=== PATIENT | male | born 1940 | race Caucasian/White ===

== ENCOUNTER 2019-02-22 23:55 | Emergency (ER) | payer MEDICARE, BC ==
--- NOTE | 2019-02-23 00:25 | EDM.PDOC ---
ED HPI GENERAL MEDICAL PROBLEM - General Chief Complaint: Trauma Stated Complaint: fall Time Seen by Provider: 02/23/19 00:15 Source of Information: Reports: Patient, Family History Limitations: Reports: No Limitations - History of Present Illness INITIAL COMMENTS - FREE TEXT/NARRATIVE: 78 YO WM presents to ER complaining of generalized weakness and fall tonight. Pt states he and his son were out drinking tonight and when he got home and got out of the car he fell to the ground. Pt states he feels fine now but states he doesn't know what happened. Pt denies any loss of consciousness. Fall was witnessed by son who confirms no loss of consciousness. Pt denies chest pain, no shortness of breath, no headache, no nausea/vomiting. Pt denies any recent illnesses. No cough or congestion, no fever/chills. Pt alert and oriented with GCS-15. Pt with mild slurred speech but no focal neuro deficits or weakness. Son is asking dad if he wants to go home without further evaluation. Onset: Today Location: Reports: Generalized Severity: Mild Improves with: Reports: None Worsens with: Reports: None Associated Symptoms: Reports: Weakness. Denies: Confusion, Chest Pain, Cough, cough w sputum, Diaphoresis, Fever/Chills, Headaches, Loss of Appetite, Malaise , Rash, Seizure, Shortness of Breath, Syncope - Related Data Allergies Allergy/AdvReac Type Severity Reaction Status Date / Time No Known Allergies Allergy Verified 02/22/19 23:57 Past Medical History Oncologic (Cancer) History: Reports: Prostate Social & Family History - Tobacco Use Smoking Status *Q: Never Smoker - Alcohol Use Number of Drinks Per Day: 7 - Recreational Drug Use Recreational Drug Use: No Review of Systems - Review of Systems Review Of Systems: See Below Constitutional: Reports: No Symptoms Eyes: Reports: No Symptoms Ears: Reports: No Symptoms Nose: Reports: No Symptoms Mouth/Throat: Reports: No Symptoms Respiratory: Reports: No Symptoms Cardiovascular: Reports: No Symptoms GI/Abdominal: Reports: No Symptoms Genitourinary: Reports: No Symptoms Musculoskeletal: Reports: No Symptoms Skin: Reports: No Symptoms Neurological: Reports: No Symptoms Psychiatric: Reports: No Symptoms ED EXAM, GENERAL - Physical Exam Exam: See Below Exam Limited By: No Limitations General Appearance: Alert, WD/WN, No Apparent Distress Eye Exam: Bilateral Eye: EOMI, PERRL Head: Atraumatic, Normocephalic Neck: Normal Inspection, Supple, Non-Tender, Full Range of Motion Respiratory/Chest: No Respiratory Distress, Lungs Clear, Normal Breath Sounds, No Accessory Muscle Use, Chest Non-Tender Cardiovascular: Normal Peripheral Pulses, Regular Rate, Rhythm, No Edema, No Gallop, No JVD, No Murmur, No Rub GI/Abdominal: Normal Bowel Sounds, Soft, Non-Tender, No Organomegaly, No Distention, No Abnormal Bruit, No Mass Back Exam: Normal Inspection, Full Range of Motion, NT Extremities: Normal Inspection, Normal Range of Motion, Non-Tender, Normal Capillary Refill, No Pedal Edema Neurological: Alert, Oriented, CN II-XII Intact, Normal Cognition, Normal Gait, Normal Reflexes, No Motor/Sensory Deficits Psychiatric: Normal Affect, Normal Mood Skin Exam: Warm, Dry, Intact, Normal Color, No Rash Lymphatic: No Adenopathy EKG INTERPRETATION EKG Date: 02/23/19 Time: 00:26 Rhythm: NSR Rate (Beats/Min): 71 [place]: LAD-Left [place] Deviation P-Wave: Present QRS: Normal ST-T: Normal QT: Normal Comparison: NA - No Prior EKG Course - Vital Signs Last Recorded V/S: Last Vital Signs Temp 36.4 C 02/22/19 23:58 Pulse 76 02/22/19 23:58 Resp 16 02/22/19 23:58 BP 155/75 H 02/22/19 23:58 Pulse Ox 95 02/22/19 23:58 - Orders/Labs/Meds Orders: Active Orders 24 hr Category Date Time Status EKG Documentation Completion [RC] ASDIRECTED Care 02/23/19 00:10 Active Chest 1V Frontal [CR] Stat Exams 02/23/19 00:19 Ordered Head wo Cont [CT] Stat Exams 02/23/19 00:19 Ordered URINALYSIS W/MICROSCOPIC [UA W/MICROSCOPIC] [URIN] Stat Lab 02/23/19 00:25 Ordered EKG 12 Lead [EK] Routine Ther 02/23/19 00:10 Ordered Labs: Laboratory Tests 02/23/19 02/23/19 02/23/19 Range/Units 00:20 00:20 00:20 WBC 5.65 (5.00-10.00) 10^3/uL RBC 3.97 L (4.50-6.00) 10^6/uL Hgb 12.7 L (13.0-17.0) g/dL Hct 35.2 L (40.0-52.0) % MCV 88.7 (82.0-92.0) fL MCH 32.0 H (27.0-31.0) pg MCHC 36.1 H (32.0-36.0) g/dL RDW 12.6 (11.5-14.5) % Plt Count 222 (150-400) 10^3/uL MPV 8.7 (7.4-10.4) fL Immature Gran % (Auto) 0.2 (0.0-5.0) % Neut % (Auto) 62.2 (50.0-70.0) % Lymph % (Auto) 27.3 (20.0-40.0) % [place] % (Auto) 8.7 H (2.0-8.0) % Eos % (Auto) 1.2 (1.0-3.0) % Baso % (Auto) 0.4 (0.0-1.0) % Immature Gran # (Auto) 0.01 (0.00-0.50) 10^3/uL Neut # (Auto) 3.52 (2.50-7.00) 10^3/uL Lymph # (Auto) 1.54 (1.00-4.00) 10^3/uL [place] # (Auto) 0.49 (0.10-0.80) 10^3/uL Eos # (Auto) 0.07 L (0.10-0.30) 10^3/uL Baso # (Auto) 0.02 (0.00-0.10) 10^3/uL Sodium 132 L (136-145) mmol/L Potassium 3.4 (3.3-5.3) mmol/L Chloride 95 L (98-115) mmol/L Carbon Dioxide 21.3 (21.0-32.0) mmol/L Anion Gap 19.1 H (5-15) mmol/L BUN 20 (6-25) mg/dL Creatinine 1.02 (0.51-1.17) mg/dL Est Cr Clr Drug Dosing 52.12 mL/min Estimated GFR (MDRD) > 60 mL/min Glucose 123 H (75 - 99) mg/dL Calcium 8.2 L (8.7-10.3) mg/dL Total Bilirubin 0.4 (0.2-1.0) mg/dL AST 36 (15-37) U/L ALT 18 (12-78) U/L Alkaline Phosphatase 79 (46-116) IU/L Creatine Kinase 156 (26-276) U/L CK-MB (CK-2) 1.90 (0.00-4.30) ng/mL Troponin I 0.05 (0.00-0.070) ng/mL Total Protein 6.9 (6.4-8.2) g/dL Albumin 3.56 (3.00-4.80) g/dL Urine Color (YELLOW) Urine Appearance (CLEAR) Urine pH (5.0-9.0) Ur Specific [place] (1.005-1.030) Urine Protein (NEGATIVE) mg/dL Urine Glucose (UA) (NEGATIVE) mg/dL Urine Ketones (NEGATIVE) mg/dL Urine Occult Blood (NEGATIVE) Urine Nitrite (NEGATIVE) Urine Bilirubin (NEGATIVE) Urine Urobilinogen (0.2-1.0) E.U./dL Ur Leukocyte Esterase (NEGATIVE) Ethyl Alcohol 262 H* (NONE DETECTED) mg/dL 02/23/19 Range/Units 00:25 WBC (5.00-10.00) 10^3/uL RBC (4.50-6.00) 10^6/uL Hgb (13.0-17.0) g/dL Hct (40.0-52.0) % MCV (82.0-92.0) fL MCH (27.0-31.0) pg MCHC (32.0-36.0) g/dL RDW (11.5-14.5) % Plt Count (150-400) 10^3/uL MPV (7.4-10.4) fL Immature Gran % (Auto) (0.0-5.0) % Neut % (Auto) (50.0-70.0) % Lymph % (Auto) (20.0-40.0) % [place] % (Auto) (2.0-8.0) % Eos % (Auto) (1.0-3.0) % Baso % (Auto) (0.0-1.0) % Immature Gran # (Auto) (0.00-0.50) 10^3/uL Neut # (Auto) (2.50-7.00) 10^3/uL Lymph # (Auto) (1.00-4.00) 10^3/uL [place] # (Auto) (0.10-0.80) 10^3/uL Eos # (Auto) (0.10-0.30) 10^3/uL Baso # (Auto) (0.00-0.10) 10^3/uL Sodium (136-145) mmol/L Potassium (3.3-5.3) mmol/L Chloride (98-115) mmol/L Carbon Dioxide (21.0-32.0) mmol/L Anion Gap (5-15) mmol/L BUN (6-25) mg/dL Creatinine (0.51-1.17) mg/dL Est Cr Clr Drug Dosing mL/min Estimated GFR (MDRD) mL/min Glucose (75 - 99) mg/dL Calcium (8.7-10.3) mg/dL Total Bilirubin (0.2-1.0) mg/dL AST (15-37) U/L ALT (12-78) U/L Alkaline Phosphatase (46-116) IU/L Creatine Kinase (26-276) U/L CK-MB (CK-2) (0.00-4.30) ng/mL Troponin I (0.00-0.070) ng/mL Total Protein (6.4-8.2) g/dL Albumin (3.00-4.80) g/dL Urine Color Light yellow (YELLOW) Urine Appearance Clear (CLEAR) Urine pH 5.0 (5.0-9.0) Ur Specific [place] <= 1.005 (1.005-1.030) Urine Protein Negative (NEGATIVE) mg/dL Urine Glucose (UA) Negative (NEGATIVE) mg/dL Urine Ketones Negative (NEGATIVE) mg/dL Urine Occult Blood Trace-lysed H (NEGATIVE) Urine Nitrite Negative (NEGATIVE) Urine Bilirubin Negative (NEGATIVE) Urine Urobilinogen 0.2 (0.2-1.0) E.U./dL Ur Leukocyte Esterase Negative (NEGATIVE) Ethyl Alcohol (NONE DETECTED) mg/dL - Radiology Interpretation Free Text/Narrative:: CXR- NAD CT Head- Chronic white matter disease; NAD Departure - Departure Time of Disposition: 01:09 Disposition: Home, Self-Care 01 Condition: Fair Clinical Impression: Generalized weakness Alcohol intoxication Qualifiers: Complication of substance-induced condition: uncomplicated Qualified Code(s): F10.920 - Alcohol use, unspecified with intoxication, uncomplicated - Discharge Information Instructions: Weakness, [id number], Alcohol Intoxication Forms: ED Department Discharge Additional Instructions: 1. discharge home 2. follow up with PCP for further management 3. decrease alcohol consumption 4. return to ER for worsening symptoms - My Orders Last 24 Hours: My Active Orders 02/23/19 00:10 EKG Documentation Completion [RC] ASDIRECTED EKG 12 Lead [EK] Routine 02/23/19 00:19 Chest 1V Frontal [CR] Stat Head wo Cont [CT] Stat 02/23/19 00:25 URINALYSIS W/MICROSCOPIC [UA W/MICROSCOPIC] [URIN] Stat - Assessment/Plan Last 24 Hours: My Active Orders 02/23/19 00:10 EKG Documentation Completion [RC] ASDIRECTED EKG 12 Lead [EK] Routine 02/23/19 00:19 Chest 1V Frontal [CR] Stat Head wo Cont [CT] Stat 02/23/19 00:25 URINALYSIS W/MICROSCOPIC [UA W/MICROSCOPIC] [URIN] Stat Assessment:: 1. alcohol intoxication 2. generalized weakness- resolved Plan: 1. discharge home 2. follow up with PCP for further management 3. decrease alcohol consumption 4. return to ER for worsening symptoms
[2019-02-23 01:00] LABS: ANION GAP 19.1 mmol/L (5-15); CHLORIDE,CL 95 mmol/L (98-115); SODIUM,NA 132 mmol/L (136-145)
--- NOTE | 2019-02-23 07:33 | CT ---
[id number] CT/CT Head WO IV EXAM: CT Head WO IV CLINICAL DATA: SYNCOPE COMPARISON: NO PREVIOUS SIMILAR EXAM IS AVAILABLE FOR COMPARISON. FINDINGS: There is no mass or mass effect. There is no hemorrhage or hydrocephalus. There are no extra-axial fluid collections. There are no sites of abnormal attenuation. IMPRESSION: NO PLAIN CT EVIDENCE OF ACUTE INTRACRANIAL PROCESS. Jerad Ramirez MD 02/23/19 0732 Thank you for allowing us to participate in the care of your patient.
--- NOTE | 2019-02-23 07:35 | CR ---
[id number] RAD/RAD Chest PA or AP 1V EXAM: SINGLE VIEW CHEST. INDICATION: SYNCOPE COMPARISON: NO PREVIOUS SIMILAR EXAM IS AVAILABLE FINDINGS: The lungs are clear. There is elevation of the right hemidiaphragm. A right shoulder prosthesis is seen. The cardiomediastinal contour is moderately enlarged. IMPRESSION: NO PNEUMONIA OR EDEMA. Jerad Ramirez MD 02/23/19 0734 Thank you for allowing us to participate in the care of your patient.
== END 2019-02-23 01:25 | disposition home or self-care (01) ==
LOC: KA.ED 23:55
DX: R53.1 Weakness (principal); F10.920 Alcohol use, unspecified with intoxication, uncomplicated; Y90.8 Blood alcohol level of 240 mg/100 ml or more; R55 Syncope and collapse
CPT/HCPCS: 36415; 70450; 71045; 80053; 81001; 82550; 82553; 84484; 85025; 93005; 99284; G0480

== ENCOUNTER 2019-08-13 07:43 | Day surgery (SDC) | payer MEDICARE, BC ==
[2019-08-13] MEDS ORDERED: Lactated Ringers 1,000 ML IV SCH (08:00)
[2019-08-13] MEDS ORDERED: Sodium Chloride 0.9% 10 ML Syringe FLUSH PRN (08:00)
[2019-08-13] MEDS ORDERED: Propofol 200 MG/20 ML SDV ONE (08:40)
[2019-08-13] MEDS ORDERED: EPINEPHrine 1:10,000 1 MG/10 ML Syringe ONE (08:45)
--- NOTE | 2019-08-13 11:15 | PCM.OPNOTE ---
- General Post-Op/Procedure Note Date of Surgery/Procedure: 08/13/19 Operative Procedure(s): Colonoscopy with biopsies. Anesthesia Technique: MAC Primary Surgeon: Tracy Alcaraz Complications: None Condition: Good Free Text/Narrative:: INFORMED CONSENT: Patient is here today for elective colonoscopy. All aspects of this procedure have been discussed with the patient. All possible complications also, including possibility of perforation, infection, pain, bleeding and unknown complications. In the event of perforation patient may need to have abdominal exploration, colon resection, colostomy and even was discussed. Anesthetic complications were handled by anesthesia department. The patient understands fully well. Patient did not have any further questions for me at the end of my interview. The patient wishes for me to proceed. PREOPERATIVE DIAGNOSIS/INDICATIONS: [Persistent chronic diarrhea.] POSTOPERATIVE DIAGNOSIS: [No evidence for inflammatory bowel disease found today. Possible irritable bowel syndrome.] INSTRUMENT USED: [employer] videocolonoscope. ASA CLASSIFICATION: [2] ANESTHESIA: Continuous EKG, oximetry and intermittent blood pressure and respiratory monitoring were performed throughout the procedure. IV Versed and Fentanyl were administered. PROCEDURE PERFORMED: Colonoscopy POSITIONS OF PATIENT: Left lateral. RECTUM: Normal. SIGMOID COLON: Normal. DESCENDING COLON: Normal. SPLENIC FLEXURE: Normal. TRANSVERSE COLON: Normal. HEPATIC FLEXURE: Normal. ASCENDING COLON: Normal. CECUM: Normal. ILEOCECAL VALVE: Normal. BIOPSY: Biopsies were taken from the ileocecal valve and the terminal ileum.. TOLERANCE: Excellent. COMPLICATIONS: None. Normal-appearing colonic mucosa throughout the colon. No evidence for inflammatory bowel disease noted at this examination. Intake & Output 08/12/19 08/13/19 08/13/19 22:59 06:59 14:59 Intake Total 500 Balance 500
== END 2019-08-13 10:40 | disposition home or self-care (01) ==
LOC: KA.SDS 07:43
PROVIDERS: ATTEND Family Medicine
DX: K52.832 Lymphocytic colitis (principal); I10 Essential (primary) hypertension; E78.00 Pure hypercholesterolemia, unspecified; Z79.899 Other long term (current) drug therapy
CPT/HCPCS: 45380; J2704; J7120; 00811; 88305